=== PATIENT | female | born 2000 | race Two or more races ===

== ENCOUNTER 2022-11-12 16:12 | Emergency (ER) | payer MEDICAID ==
[~2022-11-12] VITALS: Ht 167.6 cm; Wt 65.0 kg
[2022-11-12 16:21] VITALS: BP 148/98
== END 2022-11-12 21:00 | disposition left against medical advice (07) ==
LOC: ER 16:12
DX: Z53.21 Procedure and treatment not carried out due to patient leaving prior to being seen by health care provider (principal)
CPT/HCPCS: 93005